=== PATIENT | male | born 1985 | race Caucasian/White ===

== ENCOUNTER 2016-12-15 06:39 | Day surgery (SDC) | payer BC ==
[~2016-12-15 06:39] MED LIST: Lidocaine 1%/Sod Bicarbonate in NS 8.4% 1 ML Syringe PRN; Sodium Chloride 0.9% 10 ML Syringe FLUSH PRN
[2016-12-15] MEDS ORDERED: fentaNYL 250 MCG/5 ML SDV ONE (06:43)
[2016-12-15] MEDS ORDERED: Midazolam 1 MG/ML 2 ML SDV ONE (06:43)
[2016-12-15] MEDS ORDERED: Propofol 200 MG/20 ML SDV ONE ×2 (06:43→07:22)
[2016-12-15] MEDS ORDERED: Dexamethasone 4 MG/ML SDV ONE (06:45)
[2016-12-15] MEDS ORDERED: Ondansetron 4 MG/2 ML SDV ONE (06:45)
[2016-12-15] MEDS ORDERED: Lidocaine 1% 4 ML ONE (06:45)
[2016-12-15] MEDS: Lactated Ringers 1,000 ML IV SCH ×2 (06:55→09:12)
--- NOTE | 2016-12-15 07:00 | PCM.PREANE ---
Preanesthetic Assessment - Procedure Proposed Procedure: Right KVAa iwth partial lateral menisesctomy - Anesthesia/Transfusion/Family Hx Anesthesia History: Prior Anesthesia Without Reaction Family History of Anesthesia Reaction: No Transfusion History: No Prior Transfusion(s) Intubation History: Unknown - Review of Systems General: No Symptoms Pulmonary: No Symptoms Cardiovascular: No Symptoms Gastrointestinal: No Symptoms Neurological: No Symptoms Other: Reports: None - Physical Assessment NPO Status Date: 12/14/16 NPO Status Time: 22:30 Pulse: 66 O2 Sat by Pulse Oximetry: 97 Respiratory Rate: 16 Blood Pressure: 143/96 Temperature: 36.4 C Height: 1.91 m Weight: 112.491 kg Mental Status: Alert & Oriented x3 Thyro-Mental Finger Breadths: 3 Mouth Opening Finger Breadths: 3 ROM/Head Extension: Full Lungs: Clear to Auscultation, Normal Respiratory Effort Cardiovascular: Regular Rate, Regular Rhythm - Lab Values: Laboratory Last Values MRSA (PCR) Negative 11/29/16 09:12 - Allergies Allergies/Adverse Reactions: Allergies Allergy/AdvReac Type Severity Reaction Status Date / Time No Known Allergies Allergy Verified 12/14/16 12:50 - Blood Blood Available: No Product(s) Available: None - Anesthesia Plan Pre-Op Medication Ordered: None - Acknowledgements Anesthesia Type Planned: General Anesthesia Pt an Appropriate Candidate for the Planned Anesthesia: Yes Alternatives and Risks of Anesthesia Discussed w Pt/Guardian: Yes Pt/Guardian Understands and Agrees with Anesthesia Plan: Yes PreAnesthesia Questionnaire HEENT History: Reports: Impaired Vision Cardiovascular History: Reports: None Respiratory History: Reports: None Gastrointestinal History: Reports: None Genitourinary History: Reports: None [employer] MEMBER History: Reports: None Neurological History: Reports: None Psychiatric History: Reports: None Endocrine/Metabolic History: Reports: None Hematologic History: Reports: None Immunologic History: Reports: None Oncologic (Cancer) History: Reports: None Dermatologic History: Reports: None - Past Surgical History Head Surgeries/Procedures: Reports: None HEENT Surgical History: Reports: Tonsillectomy Cardiovascular Surgical History: Reports: None Respiratory Surgical History: Reports: None GI Surgical History: Reports: None Female Surgical History: Reports: None Male Surgical History: Reports: None Endocrine Surgical History: Reports: None Neurological Surgical History: Reports: None Musculoskeletal Surgical History: Reports: Other (See Below) Other Musculoskeletal Surgeries/Procedures:: right wrist surgery with hardware, hand surgery x 2 Oncologic Surgical History: Reports: None Dermatological Surgical History: Reports: None - SUBSTANCE USE Smoking Status *Q: Current Every Day Smoker Tobacco Use Within Last Twelve Months: Cigarettes, Snuff/Dip Recreational Drug Use History: No - HOME MEDS Home Medications: Home Meds Acetaminophen/HYDROcodone [S[place]ord 325-5 MG] 1 - 2 tab PO Q6H PRN #30 tablet 12/15 [Rx] Aspirin 325 mg PO BID #84 tablet 12/15/16 [Rx] - CURRENT (IN HOUSE) MEDS Current Meds: Current Medications Lactated Ringer's (Ringers, Lactated) 1,000 mls @ 125 mls/hr IV ASDIRECTED CLAIRE Stop: 12/15/16 23:00 Lidocaine/Sodium Bicarbonate (Buffered Lidocaine 1% In Ns 8.4%) 0.25 ml .XX ONETIME PRN PRN Reason: Prior to IV Start Stop: 12/15/16 18:00 Sodium Chloride (Saline Flush) 10 ml FLUSH ASDIRECTED PRN PRN Reason: Keep Vein Open Stop: 12/15/16 18:00 Discontinued Medications Bupivacaine HCl (Marcaine 0.25%) Confirm Administered Dose 30 ml .ROUTE .STK- MED ONE Stop: 12/15/16 06:39 Dexamethasone (Dexamethasone) Confirm Administered Dose 4 mg .ROUTE .STK-MED ONE Stop: 12/15/16 06:46 Epinephrine HCl (Adrenalin 1:1000) Confirm Administered Dose 30 mg .ROUTE .STK- MED ONE Stop: 12/15/16 06:38 Fentanyl (Sublimaze) Confirm Administered Dose 250 mcg .ROUTE .STK-MED ONE Stop: 12/15/16 06:44 Lidocaine HCl (Xylocaine-Mpf 1%) Confirm Administered Dose 4 mls @ as directed .ROUTE .STK-MED ONE Stop: 12/15/16 06:46 Midazolam HCl (Versed 1 Mg/Ml) Confirm Administered Dose 2 mg .ROUTE .STK-MED ONE Stop: 12/15/16 06:44 Ondansetron HCl (Zofran) Confirm Administered Dose 4 mg .ROUTE .STK-MED ONE Stop: 12/15/16 06:46 Propofol (Diprivan 20 Ml) Confirm Administered Dose 200 mg .ROUTE .STK-MED ONE Stop: 12/15/16 06:44
[2016-12-15] MEDS ORDERED: ceFAZolin 1 GM Vial ONE (07:44)
[2016-12-15] MEDS: EPINEPHrine 1 MG/ML 30 ML MDV ONE ×2 (07:49→08:02)
[2016-12-15] MEDS: Bupivacaine 0.25% 30 ML SDV ONE ×2 (08:02→08:08)
[2016-12-15] MEDS ORDERED: HYDROmorphone 1 MG/ML Syringe ONE (08:14)
--- NOTE | 2016-12-15 08:28 | PCM.POSTAN ---
POST ANESTHESIA ASSESSMENT - MENTAL STATUS Mental Status: Alert, Oriented - VITAL SIGNS Pulse Rate: 78 SaO2: 99 Resp Rate: 8 Blood Pressure: 146/100 Temperature: 36.3 C - RESPIRATORY Respiratory Status: Respiratory Rate WNL, Airway Patent, O2 Saturation Stable, Supplemental Oxygen - CARDIOVASCULAR CV Status: Pulse Rate WNL, Blood Pressure Stable - GASTROINTESTINAL GI Status: No Symptoms - PAIN Pain Score: 8 (opioid given ) - POST OP HYDRATION Hydration Status: Adequate & Stable
[2016-12-15] MEDS ORDERED: diphenhydrAMINE 50 MG/ML SDV IVPUSH PRN (08:29)
[2016-12-15] MEDS ORDERED: fentaNYL 100 MCG/2 ML SDV IVPUSH PRN (08:29)
[2016-12-15] MEDS ORDERED: Meperidine PF 50 MG/ML Syringe IVPUSH PRN (08:29)
[2016-12-15] MEDS ORDERED: HYDROmorphone 0.5 MG/0.5 ML Syringe ONE (08:29)
[2016-12-15] MEDS ORDERED: Ondansetron 4 MG/2 ML SDV IVPUSH PRN (08:29)
[2016-12-15] MEDS: HYDROmorphone 0.5 MG/0.5 ML Syringe IVPUSH PRN ×2 (08:35→09:53)
[2016-12-15] MEDS ORDERED: Acetaminophen/HYDROcodone 325-5 MG Tab PO PRN (09:37)
--- NOTE | 2016-12-15 14:50 | PCM48HPAN ---
Post Anesthesia Note - EVALUATION WITHIN 48HRS OF ANESTHETIC Vital Signs in Normal Range: Yes Patient Participated in Evaluation: Yes Respiratory Function Stable: Yes Airway Patent: Yes Cardiovascular Function Stable: Yes Hydration Status Stable: Yes Pain Control Satisfactory: Yes Nausea and Vomiting Control Satisfactory: Yes Mental Status Recovered: Yes
--- NOTE | 2016-12-20 08:48 | PCM.OPNOTE ---
- General Post-Op/Procedure Note Date of Surgery/Procedure: 12/15/16 Operative Procedure(s): right knee video arthroscopy with partial lateral meniscectomy Pre Op Diagnosis: right knee lateral meniscus tear Post-Op Diagnosis: Same Anesthesia Technique: General LMA, Local Primary Surgeon: Arsen Mata Anesthesia Provider: Carlo Palma Assistant At Surgery: Cathy Quinonez in mLs: 5 Complications: None Condition: Good
--- NOTE | 2016-12-20 10:02 | OR ---
DATE OF OPERATION: 12/15/2016 SURGEON: Arsen Mata MD OPERATION PERFORMED: Right knee video arthroscopy with partial lateral meniscectomy. PREOPERATIVE DIAGNOSIS: Right knee lateral meniscus tear. POSTOPERATIVE DIAGNOSIS: Right knee lateral meniscus tear. ANESTHESIA: General LMA with local. ANESTHESIA PROVIDER: Carlo Palma. CAMPAIGN SPECIALIST: Cathy Quinonez PA-C. ESTIMATED BLOOD LOSS: Less than 5 mL. COMPLICATIONS: None. CONDITION: Stable. DESCRIPTION OF PROCEDURE: The patient was identified in the preoperative holding area, and proper site was marked and identified by the surgeon. The patient was taken back to the operative theater, where after adequate anesthesia, the patient's left lower extremity was placed in a well-leg morrissey. The right lower extremity had a nonsterile tourniquet applied and was then in a C-clamp morrissey. Edge of the bed was then lowered. The right lower extremity was then sterilely prepped and draped in the usual sterile fashion. OR time-out was performed. The patient received 2 g of IV Ancef. At this time, the right lower extremity was exsanguinated, tourniquet was insufflated to 250 mmHg. Standard anterolateral portal incision was made. Scope trocar was then introduced. The patient had a grade 1 chondromalacia of the patella. There were no loose foreign bodies in the medial and lateral gutter. Attention was turned to the medial compartment. Medial compartment showed no signs of chondromalacia, no medial meniscus tear. The ACL was intact in the notch. On the lateral compartment, there was noted to be grade 1/2 chondromalacia of the lateral tibial plateau as well as grade 1 chondromalacia of the lateral femoral condyle. There was noted to be a large bucket-handle lateral meniscus tear that was nearly completely severed off its posterior and anterior portions with just a small rim of the anterior portion attached. At this time, that anterior portion was trimmed and the meniscus was removed. At this time, the posterior portion of the meniscus was found to be completely unstable with no posterior attachment, nearly almost of it gone. This was then resected out back to a stable edge, but roughly 50% of the meniscus, almost all the posterior, was removed. At this time, as back to a stable rim, excess saline was drained from the joint. A 3-0 nylon simple suture was used for closure of the skin along with 0.25% Marcaine for local. The patient was placed in a sterile soft dressing and sent to the PACU in stable condition. MMODAL /[id number]
== END 2016-12-15 11:05 | disposition home or self-care (01) ==
LOC: JD.SDS 06:39
PROVIDERS: ATTEND Orthopaedic Surgery
DX: S83.251A Bucket-handle tear of lateral meniscus, current injury, right knee, initial encounter (principal); M94.261 Chondromalacia, right knee; E66.9 Obesity, unspecified; Z98.890 Other specified postprocedural states; Z68.32 Body mass index [BMI] 32.0-32.9, adult; F17.200 Nicotine dependence, unspecified, uncomplicated; X58.XXXA Exposure to other specified factors, initial encounter
CPT/HCPCS: 29881; 87641; A9270; J0171; J0690; J1100; J1170; J1200; J2250; J2405; J3010; J3490; J7120; 01400; J2704

== ENCOUNTER 2018-04-02 11:24 | Emergency (ER) | payer SELFPAY ==
--- NOTE | 2018-04-02 11:59 | EDM.PDOC ---
ED HPI GENERAL MEDICAL PROBLEM - General Chief Complaint: Abdominal Pain Stated Complaint: RIGHT SIDE PAIN Time Seen by Provider: 04/02/18 11:55 Source of Information: Reports: Patient History Limitations: Reports: No Limitations - History of Present Illness INITIAL COMMENTS - FREE TEXT/NARRATIVE: Patient is a 32-year-old male presents ED complaining of right lower quadrant abdominal pain that radiates into his flank. Patient states this came abruptly last night and has remained constant with waxing waning in intensity. Currently the pain is a dull ache sharp in nature rated a 7 out of 10 does not radiate into his testicles. He denies any nausea or vomiting, fever, chest pain, shortness of breath, dysuria, diarrhea, bloody stools, dark tarry stools, acid reflux, or any change in appetite. Suspects it maybe related to a kidney stone or possible his appendix. He has no prior history as such. Denies any past medical history and currently taking no medications. Surgical history noncontributory. Occasionally consumes alcohol. Utilizes tobacco products occasionally. Denies recreational drugs. No PCP. States yesterday with BM he had to strain. Maybe constipated. Denies any activities that may have precipitated the discomfort. Right Lower Abdominal Pain Score (Numeric/FACES): 7 - Related Data Allergies Allergy/AdvReac Type Severity Reaction Status Date / Time No Known Allergies Allergy Verified 04/02/18 11:38 Home Meds: Home Meds Acetaminophen/HYDROcodone [Rumson 325-5 MG] 1 - 2 tab PO Q6H PRN #30 tablet 12/15 [Rx] Aspirin 325 mg PO BID #84 tablet 12/15/16 [Rx] Acetaminophen/HYDROcodone [Rumson 325-5 MG] 1 tab PO Q6H PRN #10 tablet 04/02/18 [Rx] Ondansetron [Zofran ODT] 4 mg PO Q6H PRN #10 tab.dis 04/02/18 [Rx] Past Medical History HEENT History: Reports: Impaired Vision Cardiovascular History: Reports: None Respiratory History: Reports: None Gastrointestinal History: Reports: None Genitourinary History: Reports: None 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 Neurological History: Reports: None Psychiatric History: Reports: None Endocrine/Metabolic History: Reports: None Hematologic History: Reports: None Immunologic History: Reports: None Oncologic (Cancer) History: Reports: None Dermatologic History: Reports: None - Past Surgical History Head Surgeries/Procedures: Reports: None HEENT Surgical History: Reports: Tonsillectomy Cardiovascular Surgical History: Reports: None Respiratory Surgical History: Reports: None GI Surgical History: Reports: None Male Surgical History: Reports: None Endocrine Surgical History: Reports: None Neurological Surgical History: Reports: None Musculoskeletal Surgical History: Reports: Arthroscopic Procedure, Other (See Below) Other Musculoskeletal Surgeries/Procedures:: right wrist surgery with hardware, hand surgery x 2 Oncologic Surgical History: Reports: None Dermatological Surgical History: Reports: None Social & Family History - Tobacco Use Smoking Status *Q: Light Tobacco Smoker Years of Tobacco use: 12 Packs/Tins Daily: 0.1 Tobacco Use Comment: chews 1 can a day - Caffeine Use Caffeine Use: Reports: Energy Drinks, Soda - Recreational Drug Use Recreational Drug Use: No ED ROS GENERAL - Review of Systems Review Of Systems: ROS reveals no pertinent complaints other than HPI. ED EXAM, GI/ABD - Physical Exam Exam: See Below Exam Limited By: No Limitations General Appearance: Alert, WD/WN, No Apparent Distress Ears: Hearing Grossly Normal Nose: Normal Inspection Throat/Mouth: Normal Voice, No Airway Compromise Head: Atraumatic, Normocephalic Neck: Normal Inspection, Supple Respiratory/Chest: No Respiratory Distress, Lungs Clear, Normal Breath Sounds, No Accessory Muscle Use, Chest Non-Tender Cardiovascular: Normal Peripheral Pulses, Regular Rate, Rhythm GI/Abdominal Exam: Normal Bowel Sounds, Soft, No Organomegaly, No Distention, Tender (right lower quadrant with radiation to flank. Mcburneys point negative. ) (Male) Exam: Deferred Rectal (Males) Exam: Deferred Back Exam: Normal Inspection, Full Range of Motion. No: CVA Tenderness (L), CVA Tenderness (R) Extremities: Normal Inspection Neurological: Alert, Oriented, CN II-XII Intact, Normal Cognition, No Motor/ Sensory Deficits Psychiatric: Normal Affect, Normal Mood Skin Exam: Warm, Dry, Intact, Normal Color Course - Vital Signs Last Recorded V/S: Last Vital Signs Temp 96.9 F 04/02/18 11:35 Pulse 68 04/02/18 11:35 Resp 18 04/02/18 11:35 BP 167/106 H 04/02/18 11:35 Pulse Ox 98 04/02/18 11:35 - Orders/Labs/Meds Orders: Active Orders 24 hr Category Date Time Status Peripheral IV Care [RC] . DIRECTED Care 04/02/18 12:11 Active Abdomen Pelvis wo Cont [CT] Stat Exams 04/02/18 12:11 Taken Sodium Chloride 0.9% [Normal Saline] 1,000 ml Med 04/02/18 12:15 Active IV ASDIRECTED Sodium Chloride 0.9% [Saline Flush] Med 04/02/18 12:11 Active 10 ml FLUSH ASDIRECTED PRN Peripheral IV Insertion Adult [OM.PC] Routine Oth 04/02/18 12:11 Ordered Medication Orders Sodium Chloride (Normal Saline) 1,000 mls @ 250 mls/hr IV ASDIRECTED CLAIRE Last Admin: 04/02/18 12:29 Dose: 250 mls/hr Sodium Chloride (Saline Flush) 10 ml FLUSH ASDIRECTED PRN PRN Reason: Keep Vein Open Last Admin: 04/02/18 12:29 Dose: 10 ml Labs: Laboratory Tests 04/02/18 04/02/18 04/02/18 Range/Units 12:25 12:25 12:25 WBC 13.25 H (4.23-9.07) K/mm3 RBC 5.13 (4.63-6.08) M/mm3 Hgb 15.7 (13.7-17.5) gm/L Hct 45.6 (40.1-51.0) % MCV 88.9 (79.0-92.2) fl MCH 30.6 (25.7-32.2) pg MCHC 34.4 (32.2-35.5) g/dl RDW Std Deviation 44.3 H (35.1-43.9) fL Plt Count 524 H (163-337) K/mm3 MPV 10.3 (9.4-12.3) fl Neutrophils % (Manual) 80 H (40-60) % Band Neutrophils % 0 (0-10) % Lymphocytes % (Manual) 11 L (20-40) % Atypical Lymphs % 0 % Monocytes % (Manual) 6 (2-10) % Eosinophils % (Manual) 3 (0.8-7.0) % Basophils % (Manual) 0 L (0.2-1.2) Platelet Estimate Adequate Plt Morphology Comment See note RBC Morph Comment Normal Sodium 138 (136-145) mEq/L Potassium 3.9 (3.5-5.1) mEq/L Chloride 102 (98-107) mEq/L Carbon Dioxide 25 (21-32) mEq/L Anion Gap 14.9 (5-15) BUN 12 (7-18) mg/dL Creatinine 1.2 (0.7-1.3) mg/dL Est Cr Clr Drug Dosing 104.65 mL/min Estimated GFR (MDRD) > 60 (>60) mL/min BUN/Creatinine Ratio 10.0 L (14-18) Glucose 117 H (74-106) mg/dL Calcium 9.6 (8.5-10.1) mg/dL Total Bilirubin 0.5 (0.2-1.0) mg/dL AST 43 H (15-37) U/L ALT 81 H (16-63) U/L Alkaline Phosphatase 105 (46-116) U/L C-Reactive Protein < 0.2 (<1.0) mg/dL Total Protein 7.7 (6.4-8.2) g/dl Albumin 3.8 (3.4-5.0) g/dl Globulin 3.9 gm/dL Albumin/Globulin Ratio 1.0 (1-2) Urine Color Yellow (Yellow) Urine Appearance Clear (Clear) Urine pH 6.5 (5.0-8.0) Ur Specific [place] 1.015 (1.005-1.030) Urine Protein Negative (Negative) Urine Glucose (UA) Negative (Negative) Urine Ketones Negative (Negative) Urine Occult Blood Negative (Negative) Urine Nitrite Negative (Negative) Urine Bilirubin Negative (Negative) Urine Urobilinogen 0.2 (0.2-1.0) Ur Leukocyte Esterase Negative (Negative) Urine RBC 0-5 (0-5) /hpf Urine WBC 0-5 (0-5) /hpf Ur Epithelial Cells 0-5 (0-5) /hpf Urine Bacteria Not seen (FEW) /hpf Urine Mucus Not seen (FEW) /hpf Meds: Medications Generic Name Dose Route Start Last Admin Trade Name Freq PRN Reason Stop Dose Admin Sodium Chloride 1,000 mls @ 250 mls/hr 04/02/18 12:15 04/02/18 12:29 Normal Saline IV 250 mls/hr ASDIRECTED CLAIRE Administration Sodium Chloride 10 ml 04/02/18 12:11 04/02/18 12:29 Saline Flush FLUSH 10 ml ASDIRECTED PRN Administration Keep Vein Open Discontinued Medications Generic Name Dose Route Start Last Admin Trade Name Etienne PRN Reason Stop Dose Admin Hydromorphone HCl 0.5 mg 04/02/18 13:08 04/02/18 13:14 Dilaudid IVPUSH 04/02/18 13:09 0.5 mg ONETIME ONE Administration Hydromorphone HCl Confirm 04/02/18 13:12 Dilaudid Administered 04/02/18 13:13 Dose 1 mg .ROUTE .STK-MED ONE Ketorolac Tromethamine 30 mg 04/02/18 12:10 04/02/18 12:29 Toradol IVPUSH 04/02/18 12:11 30 mg ONETIME ONE Administration - Re-Assessments/Exams Free Text/Narrative Re-Assessment/Exam: Patient has pain to the right flank right lower lower quadrant with negative McBurney's point. No pain radiating to his testicles. He is having a difficult time getting comfortable. Suspects he has a kidney stone. Came on abruptly last night and has been constant with waxing and waning since. Currently rated a 7 out of 10 with no fever, nausea or vomiting, diarrhea, dysuria, or any additional complaints. IV will be established with normal saline and Toradol 30 mg IV. Initial labs and studies will include: CBC, chem 14, CRP, UA, and CT the abdomen and pelvis without contrast renal stone protocol. Labs reviewed: White blood cell count 13.25, platelet count 524, neutrophil percentage is slightly elevated at 80 with no left shift. Hemoglobin is normal. Chemistry panel indicated elevated glucose 117, AST 43, ALT 81, and normal CRP. UA was negative. CT of the abdomen and pelvis impression: Mild diverticulosis is present in the distal colon. No obstructive uropathy. Discussed labs and CT studies with the patient. Patient is feeling more comfortable after the administration of pain meds. Unclear cause a recent complaint. He has no kidney stones, no appendicitis, no no findings concerning for diverticulitis as well. Thus this may be associated with constipation or muscle strain. On exam he has no findings concerning for inguinal hernia tensor is no pain with palpation. He has no testicular pain as well. Treatment will consist of anti-inflammatories, Tylenol, and for severe pain Rumson. I will have the patient started taking MiraLAX one capful every day as well. Push the fluids. Follow-up with PCP next few days if symptoms persist. Return precautions were discussed with the patient. He had no questions or concerns agreed with plan. Mother is present to give the patient a ride. Departure - Departure Time of Disposition: 15:15 Disposition: Home, Self-Care 01 Condition: Good Clinical Impression: Abdominal pain of unknown etiology Constipation Qualifiers: Constipation type: unspecified constipation type Qualified Code(s): K59.00 - Constipation, unspecified - Discharge Information Prescriptions: Acetaminophen/HYDROcodone [Rumson 325-5 MG] 1 tab PO Q6H PRN #10 tablet PRN Reason: Pain (Severe 7-10) Ondansetron [Zofran ODT] 4 mg PO Q6H PRN #10 tab.dis PRN Reason: Nausea/Vomiting Instructions: High-Fiber Diet, Constipation, Adult, Abdominal Pain, Adult, Easy -to-Read Referrals: PCP,Unknown [Ordering Only Provider] - Forms: ED Department Discharge Additional Instructions: As discussed do not have clear etiology to what is causing your discomfort. CT of the abdomen did not reveal any concerns for appendicitis, diverticulitis, kidney stone, or any other obvious inflammatory processes. With that said with you history of straining while having a bowel movement I suspect cause of the pain may be associated with constipation. This is a diagnosis of exclusion thus will have you take MiraLAX one capful every day with copious amounts of water. Increase your fiber in your diet. Monitor for any new or worsening symptoms. May utilize Tylenol and ibuprofen for mild to moderate pain. For severe pain take Rumson one tab every 6 hours as needed. Please follow up with your primary care provider if symptoms persist. Return to the ED at any time if he developed any new or worsening symptoms. Do not drive today since receiving a sedative medication. Do not drive while taking the Rumson. Do not take Rumson and Tylenol together. - My Orders Last 24 Hours: My Active Orders 04/02/18 12:11 Peripheral IV Care [RC] . DIRECTED Abdomen Pelvis wo Cont [CT] Stat Sodium Chloride 0.9% [Saline Flush] 10 ml FLUSH ASDIRECTED PRN Peripheral IV Insertion Adult [OM.PC] Routine 04/02/18 12:15 Sodium Chloride 0.9% [Normal Saline] 1,000 ml IV ASDIRECTED - Assessment/Plan Last 24 Hours: My Active Orders 04/02/18 12:11 Peripheral IV Care [RC] . DIRECTED Abdomen Pelvis wo Cont [CT] Stat Sodium Chloride 0.9% [Saline Flush] 10 ml FLUSH ASDIRECTED PRN Peripheral IV Insertion Adult [OM.PC] Routine 04/02/18 12:15 Sodium Chloride 0.9% [Normal Saline] 1,000 ml IV ASDIRECTED
[2018-04-02] MEDS ORDERED: Ketorolac 30 MG/ML SDV IVPUSH ONE (12:10)
[2018-04-02] MEDS ORDERED: Sodium Chloride 0.9% 10 ML Syringe FLUSH PRN (12:11)
[2018-04-02] MEDS ORDERED: Sodium Chloride 0.9% 1,000 ML IV SCH (12:15)
[2018-04-02] MEDS ORDERED: HYDROmorphone 0.5 MG/0.5 ML Syringe IVPUSH ONE (13:08)
[2018-04-02] MEDS ORDERED: HYDROmorphone 1 MG/ML Syringe ONE (13:12)
--- NOTE | 2018-04-03 08:46 | CT ---
CT abdomen and pelvis Technique: Multiple axial sections were obtained from above the dome of the diaphragm inferiorly through the pubic symphysis. Intravenous and oral contrast not utilized. Study has been performed as a ureteral stone protocol. Comparison: No prior CT imaging is available. Findings: Kidneys show no abnormal calcifications. Ureters show no dilatation or obstruction. Small portion of the visualized posterior lung bases are clear. Noncontrast appearance of the liver and spleen shows no discrete abnormality. Spleen size at the upper limits of normal at 14.1 cm in length. Adrenal glands show no nodule. Pancreas shows no discrete abnormality. Soft tissue nodule is noted medial to the spleen compatible with accessory splenic tissue. Gallbladder contains no calcified gallstones. Aorta shows no aneurysm. No retroperitoneal adenopathy is seen. No mesenteric abnormalities are seen. Appendix is seen which is normal. No pelvic mass or adenopathy is seen. No free fluid or inflammatory change is seen. Very minimal sigmoid diverticulosis is incidentally noted. Bone window settings were reviewed which appear within normal limits for the patient's age. Impression: 1. No renal calculi, ureteral dilatation or ureteral stone is seen. 2. Spleen size at the upper limits of normal at 14.1 cm. 3. Nothing acute is otherwise seen on noncontrast CT study of the abdomen and pelvis. Diagnostic code #2 Note: Preliminary [facility] report states no splenomegaly, spleen at the upper limits of normal in size, this is most likely incidental and related to body habitus I agree with preliminary report from [facility], finalized on 04/02/18, 3:03 PM Central Time, code 2
== END 2018-04-02 15:20 | disposition home or self-care (01) ==
LOC: JD.ED 11:24
DX: K59.00 Constipation, unspecified (principal); F17.210 Nicotine dependence, cigarettes, uncomplicated; Z79.82 Long term (current) use of aspirin; Z79.899 Other long term (current) drug therapy
CPT/HCPCS: 36415; 74176; 80053; 81001; 85007; 85027; 86140; 96361; 96374; 96375; 99284; J1170; J1885; J7040